=== PATIENT | male | born 1995 | race Caucasian/White ===

== ENCOUNTER 2016-12-11 12:32 | Emergency (ER) | payer BC ==
[~2016-12-11] VITALS: Ht 185.4 cm; Wt 84.8 kg
[2016-12-11 12:52] VITALS: TEMP 36.7; Ht 185.4 cm; Wt 84.8 kg
[2016-12-11] MEDS ORDERED: IBUPROFEN 800 MG TAB PO STA (13:36)
--- NOTE | 2016-12-11 13:41 | EMERGENCY ROOM VISIT NOTE ---
History First contact with patient: 13:21 Chief Complaint: HAND PAIN/INJURY Stated Complaint: RIGHT HAND BROKEN History of Present Illness The patient is a 21 year old male who presents to the Emergency Room with complaints of right hand pain. The patient states that he punched a wall last night. He reports that he was intoxicated at the time. He noticed increased swelling and pain of the hand this morning. He rates his discomfort an 8/10. He has not taken anything for pain. He denies any previous injuries to the hand. He denies any numbness or weakness. He denies any other injuries. Review of Systems A complete 6 point review of systems was reviewed with the patient with pertinent positives and negatives as per history of present illness. All else were negative. Past Medical/Surgical History Medical Problems: (1) No chronic problems Family History No pertinent family history Social History Smoking Status: Never Smoker Alcohol Use: occasionally Drug Use: none Marital Status: single Housing Status: lives with roommate Occupation Status: [employer] student Current/Historical Medications No Active Prescriptions or Reported Meds Physical Exam Vital Signs Date Time Temp Pulse Resp B/P (MAP) Pulse Ox O2 Delivery O2 Flow Rate FiO2 12/11/16 14:50 76 18 123/56 99 12/11/16 12:52 36.7 64 16 138/82 99 Room Air Physical Exam VITALS: Vitals are noted on the nurse's note and reviewed by myself. Vital signs stable. GENERAL: This is a 21-year-old male, in no acute distress, nondiaphoretic, well- developed well-nourished. SKIN: No lacerations or abrasions. MUSCULOSKELETAL: There is significant edema, ecchymosis and tenderness to palpation over the right hand in the area of the first, second and third metacarpals. Full range of motion of all fingers. Capillary refill within 2 seconds. NEURO: Patient was alert and oriented to person place and time. Normal sensation to light and sharp touch. Medical Decision & Procedures ER Provider Diagnostic Interpretation: RIGHT HAND 3 VIEWS HISTORY: right hand pain, punched wall COMPARISON: None. FINDINGS: Slightly comminuted and impacted fracture at the head/neck of the third metacarpal. This demonstrates up to 2 mm of depression. No dislocation. Soft tissue swelling throughout the hand most pronounced at the thenar region. No radiopaque foreign bodies. IMPRESSION: There is an impacted and comminuted fracture at the head/neck of the third metacarpal. Medications Administered Medications (Trade) Dose Ordered Sig/Roberto Route Start Time Stop Time Status Last Admin Dose Admin Ibuprofen (Motrin Tab) 800 mg NOW STAT PO 12/11/16 13:36 12/11/16 13:37 DC 12/11/16 13:45 800 MG Medical Decision Differential diagnosis includes fracture, contusion, sprain, dislocation, among others. The patient was evaluated as above. He was given 800 mg ibuprofen for pain. X- ray of the right hand was obtained and read by radiology and showed a fracture of the head/neck of the third metacarpal. Patient was placed in an Ortho-Glass volar splint by the ED ct scan technician under my supervision. Neurovascular status was reassessed and was intact. Patient was given an arm sling for comfort. He was given information for orthopedic follow-up and conservative measures were discussed. He was advised to use ice and ibuprofen for pain. He verbalized understanding of my assessment and treatment plan and was discharged home in good condition. Medication Reconcilliation Current Medication List: was personally reviewed by me Blood Pressure Screening Patient's blood pressure: Normal blood pressure Impression Primary Impression: Fracture of third metacarpal bone Departure Information Dispostion Home / Self-Care Condition GOOD Prescriptions No Active Prescriptions or Reported Meds Referrals No Doctor, Assigned (PCP) Sal Sherwood D.O. Patient Instructions ED Splint Care [facility] Additional Instructions You have been treated in the Emergency Department for a hand fracture. For pain control, you can use the following [id number] medicines (if >12 yo): - Regular strength (325mg/tab) Tylenol (acetaminophen) 2 tabs every 4-6 hours as needed. Do not exceed 12 tablets in a 24 hour period. Avoid taking more than 4 grams (4000 mg) of Tylenol per day. This includes any other sources of acetaminophen you may take on a regular basis. - Regular strength (200 mg/tab) Advil (ibuprofen) 3-4 tabs every 6 hours as needed. Do not exceed a dose of 3200 mg per day. If this is a recent injury (<24 hrs), ice can be applied to the area of pain for the first 3 days to help decrease pain and inflammation. You have been provided the number for an Orthopaedic Surgeon. You should call this number as soon as possible to establish a follow-up visit from today's Emergency Department visit. Keep the splint in place until evaluated by Orthopedics. Do NOT get the splint wet. Return to the Emergency Department if your current symptoms worsen despite treatment course outlined above, or if you develop any of the following symptoms : intractable pain despite aforementioned treatment course or new onset of numbness or tingling of the fingers. Problem Qualifiers Primary Impression: Fracture of third metacarpal bone Encounter type: initial encounter Fracture type: closed Metacarpal location : neck Fracture alignment: nondisplaced Laterality: right Qualified Codes : S62.362A - Nondisplaced fracture of neck of third metacarpal bone, right hand , initial encounter for closed fracture
--- NOTE | 2016-12-11 14:09 | DIAGNOSTIC IMAGING REPORT ---
RIGHT HAND 3 VIEWS HISTORY: right hand pain, punched wall COMPARISON: None. FINDINGS: Slightly comminuted and impacted fracture at the head/neck of the third metacarpal. This demonstrates up to 2 mm of depression. No dislocation. Soft tissue swelling throughout the hand most pronounced at the thenar region. No radiopaque foreign bodies. IMPRESSION: There is an impacted and comminuted fracture at the head/neck of the third metacarpal. Electronically signed by: Mitchel Gold M.D. 12/11/2016 2:07 PM Dictated Date/Time: 12/11/2016 2:05 PM
[2016-12-11 14:50] VITALS: BP 123/56; PULSE 76; O2SAT 99
== END 2016-12-11 14:59 | disposition home or self-care (01) ==
LOC: C.EDB 12:33 → C.EDD 14:59
DX: S62.302A Unspecified fracture of third metacarpal bone, right hand, initial encounter for closed fracture (principal); W22.8XXA Striking against or struck by other objects, initial encounter

== ENCOUNTER → 2016-12-18 | Outpatient (CLI) | payer BC ==
--- NOTE | 2016-12-18 15:43 | DIAGNOSTIC IMAGING REPORT ---
RIGHT HAND CT CT DOSE: 273.13 mGy.cm HISTORY: RT SIDED FX OF 3RD METACARPAL TECHNIQUE: Multiaxial CT images of the right hand were performed and reformatted in the sagittal and coronal plane without the use of contrast. A dose lowering technique was utilized adhering to the principles of ALARA. COMPARISON: Right hand 12/11/2016. FINDINGS: Redemonstration of the comminuted and impacted fracture at the head/neck of the third metacarpal. This demonstrates up to 5 mm of impaction. This also demonstrates 3 mm of volar displacement. Soft tissue swelling at the third MCP joint. No additional fractures identified. IMPRESSION: Redemonstration of the comminuted, impacted, displaced fracture at the head/neck of the third metacarpal. This is similar to the prior study. Electronically signed by: Mitchel Gold M.D. 12/18/2016 3:42 PM Dictated Date/Time: 12/18/2016 3:39 PM
== END | disposition home or self-care (01) ==
LOC: C.CTS 14:27
PROVIDERS: ATTEND Orthopaedic Surgery Sports Medicine
DX: S62.332A Displaced fracture of neck of third metacarpal bone, right hand, initial encounter for closed fracture (principal); X58.XXXA Exposure to other specified factors, initial encounter